=== PATIENT | female | born 1975 | race Caucasian/White ===

== ENCOUNTER 2023-05-15 23:20 | Emergency (ER) | payer SELFPAY ==
[~2023-05-15] VITALS: Ht 170 cm; Wt 127.0 kg
[2023-05-15 23:25] VITALS: BP 135/81
[2023-05-15] MEDS ORDERED: IBUPROFEN 600 MG TABLET PO ONE (23:30)
--- NOTE | 2023-05-15 23:36 | ED Lower Extremity ---
General Chief Complaint: Lower Extremity Stated Complaint: L ANKLE PAIN Source: patient Exam Limitations: no limitations History of Present Illness Date Seen by Provider: May 15, 2023 Time Seen by Provider: 23:25 Initial Comments 48-year-old female with past medical history of hypertension coming in due to left ankle pain. Her daughter accidentally tripped her shortly prior to arrival and she rolled her left ankle. She has not really been able to put much weight on it since. Has not had any medicines as of yet. Otherwise denying any other acute complaints. Allergies and Home Medications Allergies Coded Allergies: Penicillins (Verified Allergy, Unknown, 05/15/23) Patient Home Medication List Home Medication List Reviewed: Yes Review of Systems Constitutional: No fever Musculoskeletal: see HPI Psychiatric/Neurological: No Symptoms Reported Past Cqchcmk-Fyhprk-Ennldx Hx Patient Social History Tobacco Use?: Yes Tobacco type used: Cigarettes Physical Exam Vital Signs Capillary Refill : Height, Weight, BMI Height: '" Weight: lbs. oz. kg; BMI Method: General Appearance: WD/WN, no apparent distress HEENT: PERRL/EOMI, normal ENT inspection, pharynx normal Neck: non-tender, full range of motion, supple, normal inspection Cardiovascular: regular rate, rhythm, no edema, no murmur Respiratory: chest non-tender, lungs clear, normal breath sounds, no respiratory distress, no accessory muscle use Hips: bilateral hip non-tender, bilateral hip normal inspection, bilateral hip normal range of motion, bilateral hip no evidence of injury Legs: bilateral leg non-tender, bilateral leg normal inspection, bilateral leg normal range of motion, bilateral leg no evidence of injury Knees: bilateral knee non-tender, bilateral knee normal inspection, bilateral knee normal range of motion, bilateral knee no evidence of injury Ankles: right ankle non-tender, right ankle normal inspection; bilateral ankle normal range of motion; right ankle no evidence of injury; left ankle bone tenderness (On the lateral malleolus), left ankle soft tissue tenderness, left ankle swelling Feet: bilateral foot non-tender (Specifically no Lisfranc tenderness, no Achilles tenderness, no pain along the fifth metatarsal), bilateral foot normal inspection, bilateral foot normal range of motion, bilateral foot no evidence of injury Neurologic/Tendon: normal sensation, normal motor functions, normal tendon functions Neurologic/Psychiatric: no motor/sensory deficits, alert, normal mood/affect Skin: normal color, warm/dry Progress/Results/Core Measures Results/Orders My Orders Orders - SAMMY HANKINS MD Ankle 3 View Left (05/15/23 23:30) Progress Progress Note : Progress Note 48-year-old female coming in due to lateral ankle pain after rolling it. ABCs were intact and vitals are stable on presentation. Physical exam with lateral malleolus tenderness and pain with inversion of the foot. She is neurovascularly intact distal to the injury. X-ray of the left ankle ordered and interpreted by me showing no fracture or dislocation. 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 Patient given a boot for comfort. I believe she stable for discharge with outpatient follow-up. She was sent home with strict return precautions. Departure Impression Primary Impression: Ankle sprain Qualified Codes: S93.492A - Sprain of other ligament of left ankle, initial encounter Disposition: HOME, SELF-CARE Condition: Stable Departure-Patient Inst. Decision time for Depature: 23:50 Referrals: HARMAN MILLER MD (PCP/Family) Primary Care Physician SOCO KINNEY Patient Instructions: Ankle Sprain ED Add. Discharge Instructions: Fortunately nothing is broken or dislocated on the x-ray. We can tell based on the x-ray that you broke your ankle previously and it never really healed together. Take ibuprofen 600 mg [id number] every 6 hours for swelling and pain. You can also add Tylenol on top of that. Keep it wrapped and elevated to keep the swelling down. Follow-up with Ibrahima Kinney here in [facility] for repeat evaluation. It often takes 6 weeks to improve from an ankle sprain. Try to use the boot to get around. If you feel like you cannot even do that, you may need to sampler pickup some crutches from Ibrahima Kinney. Work/School Note: Family Work Note, Patient Received Medical Care In the Emergency Department On: May 15, 2023 Patient Will Be Able to Return to Work/School On: May 17, 2023 Work Release Form Date Seen in the Emergency Department: May 15, 2023 Return to Work: May 17, 2023 Restrictions: No Restrictions SAMMY HANKINS MD May 15, 2023 23:36
--- NOTE | 2023-05-16 07:57 | Diagnostic Imaging Report ---
HISTORY: Lateral ankle pain after injury. TECHNIQUE: 3 views of the left ankle COMPARISON: None FINDINGS: There are well-corticated ossifications adjacent to the medial and lateral malleoli which were thought to be from remote injury. No definite acute fracture is seen. Ankle mortise is symmetric. There is moderate lateral soft tissue swelling. There is no ankle joint effusion seen. IMPRESSION:. Soft tissue swelling of the lateral left ankle with no acute fracture seen. If there is concern for internal derangement, consider nonemergent MRI to further evaluate. Dictated by: Dictated on workstation # [id number]
== END 2023-05-15 23:50 | disposition home or self-care (01) ==
LOC: ER FS 23:22
DX: S93.492A Sprain of other ligament of left ankle, initial encounter (principal); F17.210 Nicotine dependence, cigarettes, uncomplicated; W18.40XA Slipping, tripping and stumbling without falling, unspecified, initial encounter; X50.1XXA Overexertion from prolonged static or awkward postures, initial encounter
CPT/HCPCS: 73610